=== PATIENT | male | born 1975 | race Caucasian/White ===

== ENCOUNTER 2018-06-09 02:58 | Day surgery (SDC) | payer OTHER ==
[~2018-06-09] VITALS: Ht 177.8 cm; Wt 111.1 kg
[~2018-06-09 02:58] MED LIST: AUG875 PO; BUSP10TA95 PO; CARB-91 PO; CARB200O5 PO; PHEN120S16 PO; SIMV-44 PO; SIMV-49 PO; SIMV-54 PO
[2018-06-09] MEDS ORDERED: PROPOFOL EMUL(*) 10MG/ML 20 ML 60 ML ONE (08:17)
[2018-06-09] MEDS ORDERED: LIDOCAINE MPF 1% 5 ML VIAL ONE (08:17)
[2018-06-09 08:56] VITALS: BP 137/82
[2018-06-09] MEDS ORDERED: LIDOCAINE/SOD BICARB 8.4% SYR ID ONE (09:05)
[2018-06-09] MEDS ORDERED: NORMOSOL R SOLN(*) 1000 ML BAG 1,000 ML IV PRN (09:05)
[2018-06-09 10:37] VITALS: BP 97/55
[2018-06-09 10:43] VITALS: BP 112/66
[2018-06-09 11:00] VITALS: BP 125/71
[2018-06-09 11:14] VITALS: BP 115/74
[2018-06-09 11:15] VITALS: BP 122/85
== END 2018-06-09 11:30 | disposition short-term general hospital (02) ==
LOC: OR 02:58
PROVIDERS: ATTEND Internal Medicine Gastroenterology
DX: R19.7 Diarrhea, unspecified (principal); E83.119 Hemochromatosis, unspecified; K20.9 Esophagitis, unspecified; K44.9 Diaphragmatic hernia without obstruction or gangrene; K29.70 Gastritis, unspecified, without bleeding
CPT/HCPCS: 43239; 43250; 88305; 88313; 88344; J2001; J2704